=== PATIENT | female | born 1970 | race Caucasian/White ===

== ENCOUNTER 2024-06-15 09:34 | Outpatient (OUT) | payer BC, SELFPAY ==
--- NOTE | 2024-06-15 09:40 | MM_ITS ---
Patient Name: EZRA WHITLOCK MR#: [id number] : 1970 Exam Date: 06/15/2024 Ordering Doctor: Shaikh Melia Nayak . RADIOLOGY REPORT PROCEDURE: MM TOMOSYNTHESIS SCREENING BI COMPARISON: MG MAMM SCREEN 3D VIVIEN CAD, 01/10/2022. MG MAMM LT DIAG W CAD, 06/19/2018. INDICATIONS: Screening Calculator Name NCI Breast Cancer Risk Assessment Tool 5 Year Breast Cancer Risk 2.40% Lifetime Breast Cancer Risk 17.50% Personal Breast Cancer No Personal Ovarian Cancer No Treatments None Family Cancers Mother with breast cancer at age ~5064; Father with lung cancer at age 70. LOCATION: [facility] BREAST COMPOSITION: There are scattered areas of fibroglandular density. FINDINGS: DIAGNOSTIC CATEGORY 2--BENIGN FINDING. NO CHANGE FROM COMPARISON. Scattered benign-appearing calcifications are present. Scattered benign-appearing lymph nodes are present. RIGHT BREAST: No significant suspicious finding. LEFT BREAST: No significant suspicious finding. RECOMMENDATIONS: ROUTINE MAMMOGRAM AND CLINICAL EVALUATION IN 12 MONTHS. PLEASE NOTE: A NORMAL MAMMOGRAM DOES NOT EXCLUDE THE POSSIBILITY OF BREAST CANCER. A CLINICALLY SUSPICIOUS PALPABLE LUMP SHOULD BE BIOPSIED. Dictated by: Ben Wilson MD on 06/15/2024 at 11:01 Approved by: Ben Wilson MD on 06/15/2024 at 11:03
== END 2024-06-15 09:35 | disposition home or self-care (01) ==
LOC: MAMMO 09:36
PROVIDERS: PCP Family Medicine; Visit Provider Internal Medicine
DX: Z12.31 Encounter for screening mammogram for malignant neoplasm of breast (principal); Z80.3 Family history of malignant neoplasm of breast; Z80.1 Family history of malignant neoplasm of trachea, bronchus and lung
CPT/HCPCS: 77063; 77067